=== PATIENT | female | born 1995 | race Caucasian/White ===

== ENCOUNTER 2018-12-21 22:42 | Emergency (ER) | payer SELFPAY ==
[~2018-12-21] VITALS: Ht 165.1 cm; Wt 63.0 kg
[2018-12-21 22:54] VITALS: BP 144/88
== END 2018-12-21 23:45 | disposition left against medical advice (07) ==
LOC: ER 22:42
DX: Z53.21 Procedure and treatment not carried out due to patient leaving prior to being seen by health care provider (principal)